=== PATIENT | female | born 1995 | race Caucasian/White ===

== ENCOUNTER → 2017-08-18 | Outpatient (CLI) | payer OTHER | END | disposition home or self-care (01) | LOC: C.PATHSPEC 17:38 | PROVIDERS: ATTEND Surgery | DX: D22.5 Melanocytic nevi of trunk (principal) ==

== ENCOUNTER → 2018-03-04 | Outpatient (CLI) | payer OTHER | END | disposition home or self-care (01) | LOC: C.LAB 18:00 | PROVIDERS: ATTEND Physician Assistant | DX: L70.0 Acne vulgaris (principal) ==